=== PATIENT | female | born 1980 | race Caucasian/White ===

== ENCOUNTER 2019-04-12 22:19 | Emergency (ER) | payer OTHER ==
[2019-04-12 22:33] VITALS: TEMP 98.9; BMI 33.2
[2019-04-13] MEDS ORDERED: KETOROLAC TROMETHAMINE 30 MG/1 ML VIAL IVPUSH ONE (00:05)
[2019-04-13] MEDS ORDERED: SODIUM CHLORIDE 1,000 ML IV STA (00:05)
[2019-04-13 00:36] LABS: BASO % 0.4 % (0-2.0); EOS % 0.7 % (0-4.5); HEMATOCRIT 29.4 % (32.4-45.2); HEMOGLOBIN 9.4 GM/dL (10.7-15.3); LYMPH % 16.7 % (8-40); MCH 21.3 pg (25.7-33.7); MCHC 31.8 g/dl (32.0-36.0); MEAN CELL VOLUME 67.2 fl (80-96); MEAN PLT VOLUME 7.9 fl (7.5-11.1); MONO % 7.2 % (3.8-10.2); PLATELET COUNT 305 K/MM3 (134-434); RBC 4.38 M/mm3 (3.60-5.2); RDW 15.8 % (11.6-15.6); WHITE BLOOD COUNT 9.9 K/mm3 (4.0-10.0)
[2019-04-13] MEDS ORDERED: KETOROLAC TROMETHAMINE 30 MG/1 ML VIAL ONE (00:41)
--- NOTE | 2019-04-13 00:42 | PDOC ---
History of Present Illness - General Chief Complaint: Pain, Acute Stated Complaint: STOMACH PAIN Time Seen by Provider: 04/12/19 23:50 History Source: Patient Exam Limitations: No Limitations - History of Present Illness Initial Comments: 04/13/19 00:15 HISTORY OF PRESENT ILLNESS: 38-year-old woman past medical history of renal calculi presents emergency department for evaluation of sudden onset right flank pain radiating to the right groin starting at approximately 1:00 this afternoon. Patient reports she was at work and had a sudden onset sharp stabbing 10 out of 10 flank pain. Patient denies any fevers, chills, dysuria, hematuria, urinary hesitancy, urinary frequency, nausea or vomiting. No recent travel or sick contacts. PAST MEDICAL HISTORY: see HPI SURGICAL HISTORY: Denies ALLERGIES: No known drug allergies REVIEW OF SYSTEMS General/Constitutional: Denies fever or chills. Denies weakness, weight change. HEENT: Denies change in vision. Denies ear pain or discharge. Denies sore throat. Cardiovascular: Denies chest pain or shortness of breath. Respiratory: Denies cough, wheezing, or hemoptysis. Gastrointestinal: Denies nausea, vomiting, diarrhea or constipation. Denies rectal bleeding. Genitourinary: Denies dysuria, frequency, or change in urination. Musculoskeletal: Denies joint or muscle swelling or pain. Denies neck or back pain. Skin and breasts: Denies rash or easy bruising. Neurologic: Denies headache, vertigo, loss of consciousness, or loss of sensation. Psychiatric: Denies depression or anxiety. Endocrine: Denies increased thirst. Denies abnormal weight change. Hematologic/Lymphatic: Denies anemia, easy bleeding, or history of blood clots. Allergic/Immunologic: Denies hives or skin allergy. Denies latex allergy. PHYSICAL EXAM General Appearance: Well-appearing, appropriately dressed. No apparent distress , no intoxication. HEENT: EOMI, PERRLA, normal ENT inspection, normal voice, TMs normal, pharynx normal. No conjunctival pallor. No photophobia, scleral icterus. Neck: Supple. Trachea midline. No tenderness, rigidity, carotid bruit, stridor , lymphadenopathy, or thyromegaly. Respiratory/Chest: Lungs CTAB. No shortness of breath, chest tenderness, respiratory distress, accessory muscle use. No crackles, rales, rhonchi, stridor , wheezing, dullness Cardiovascular: RRR. S1, S2. No JVD, murmur, bradycardia, tachycardia. Gastrointestinal/Abdominal: Normal bowel sounds. Abdomen soft, non-distended. Mild ride sided tenderness without rebound tenderness or guarding. No organomegaly, pulsatile mass, hernia, hepatomegaly, splenomegaly. (-)Pantoja's Musculoskeletal/Extremities: Normal inspection. FROM of all extremities, normal capillary refill. Pelvis Stable. Right CVA tenderness. No tenderness to extremities, pedal edema, swelling, erythema or deformity. 04/13/19 03:00 Past History - Past Medical History Allergies/Adverse Reactions: Allergies Allergy/AdvReac Type Severity Reaction Status Date / Time No Known Allergies Allergy Verified 10/01/16 11:15 Home Medications: Ambulatory Orders NK [No Known Home Medication] 04/12/19 COPD: No - Surgical History Gastric Stapling: No (GASTRIC SLEEVE) - Suicide/Smoking/Psychosocial Hx Smoking History: Never smoked Hx Alcohol Use: No Drug/Substance Use Hx: No Substance Use Type: None *Physical Exam - Vital Signs Last Vital Signs Temp Pulse Resp BP Pulse Ox 98.9 F 86 18 114/68 100 04/12/19 22:31 04/12/19 22:31 04/12/19 22:31 04/12/19 22:31 04/12/19 22:31 ED Treatment Course - LABORATORY CBC & Chemistry Diagram: 04/13/19 00:32 04/13/19 00:32 Medical Decision Making - Medical Decision Making 04/13/19 00:42 A/P: 38-year-old woman with right flank pain since 1 PM Given patient's history of kidney stone and current right CVA tenderness this is most likely a kidney stone. Labs Urine including and culture Normal saline 1 L IV bolus Toradol 30 mg IV now. Risks of receiving Toradol and of been explained to the patient was verbalized understanding is accepting of all potential consequences of receiving the medication prior to testing. CT of abdomen and pelvis to rule out stone 04/13/19 02:53 CT scan is read by imaging test consultant: There is no collection system stone or hydronephrosis The bladders collapsed without intraluminal bladder stone. Cholelithiasis. Status post gastric surgery. Small hiatal hernia. IUD Reevaluation about limited without oral contrast however there is no bowel obstruction. Unremarkable appendix without appendicitis. No free intraperitoneal air Grade 1 and harrow listhesis of L5 on S1 Tiny fat-containing ventral hernia of the right lateral anterior lower abdominal wall Mild tenderness present in the right upper quadrant. CBC is notable for a mild anemia 9.4/29.4 Chemistries are unremarkable Right upper quadrant sonogram
[2019-04-13 00:58] LABS: ALBUMIN 3.8 g/dl (3.4-5.0); BILIRUBIN,TOTAL 0.9 mg/dL (0.2-1); BLOOD UREA NITROGEN 8.7 mg/dL (7-18); CALCIUM 8.7 mg/dL (8.5-10.1); CREATININE 0.6 mg/dL (0.55-1.3); TOT PROT 7.1 g/dl (6.4-8.2)
[2019-04-13 03:15] LABS: EPI CELLS 2.7 /HPF (0-5/HPF); HYALINE CASTS 4 /lpf (0-8); URINE APPEARANCE CLOUDY; URINE BACTERIA 582.8 /hpf (NEGATIVE); URINE BILIRUBIN NEGATIVE (NEGATIVE); URINE COLOR YELLOW; URINE GLUCOSE (UA) NEGATIVE (NEGATIVE); URINE KETONE NEGATIVE (NEGATIVE); URINE LEUK ESTERASE NEGATIVE (NEGATIVE); URINE NITRITE NEGATIVE (NEGATIVE); URINE PROTEIN TRACE (NEGATIVE); URINE WBC 2 /hpf (0-5)
[2019-04-13 03:19] LABS: HCG,QUALITATIVE URINE Negative
[2019-04-13 03:20] LABS: URINE RBC 18.4 /hpf (0-4)
--- NOTE | 2019-04-13 07:16 | PDOC ---
*Physical Exam - Vital Signs Last Vital Signs Temp Pulse Resp BP Pulse Ox 98.9 F 86 18 114/68 100 04/12/19 22:31 04/12/19 22:31 04/12/19 22:31 04/12/19 22:31 04/12/19 22:31 - Physical Exam General Appearance: Yes: Nourished. No: Apparent Distress HEENT: positive: ROSY, Normal ENT Inspection, Normal Voice. negative: Pale Conjunctivae, Scleral Icterus (R), Scleral Icterus (L) Neck: positive: Supple Respiratory/Chest: negative: Respiratory Distress, Accessory Muscle Use Cardiovascular: positive: Regular Rate Integumentary: positive: Normal Color, Dry. negative: Jaundice Neurologic: positive: Fully Oriented, Alert, Normal Mood/Affect ED Treatment Course - LABORATORY CBC & Chemistry Diagram: 04/13/19 00:32 04/13/19 00:32 - ADDITIONAL ORDERS Additional order review: Laboratory Results 04/13/19 04/13/19 00:38 00:32 Sodium 137 Potassium 4.0 Chloride 104 Carbon Dioxide 27 Anion Gap 6 L BUN 8.7 Creatinine 0.6 Est GFR (CKD-EPI)AfAm 135.91 Est GFR (CKD-EPI)NonAf 117.26 Random Glucose 89 Calcium 8.7 Total Bilirubin 0.9 AST 15 ALT 17 Alkaline Phosphatase 72 Total Protein 7.1 Albumin 3.8 Urine Color Yellow Urine Appearance Cloudy Urine pH 8.0 D Ur Specific [place] 1.023 Urine Protein Trace Urine Glucose (UA) Negative Urine Ketones Negative Urine Blood Negative Urine Nitrite Negative Urine Bilirubin Negative Urine Urobilinogen 1.0 Ur Leukocyte Esterase Negative Urine WBC (Auto) 2 Urine RBC (Auto) 18.4 Urine Casts (Auto) 4 U Epithel Cells (Auto) 2.7 Urine Bacteria (Auto) 582.8 Urine HCG, Qual Negative 04/13/19 00:32 RBC 4.38 MCV 67.2 L MCHC 31.8 L RDW 15.8 H D MPV 7.9 Neutrophils % 75.0 Lymphocytes % 16.7 D Monocytes % 7.2 Eosinophils % 0.7 Basophils % 0.4 - Medications Given in the ED: ED Medications Discontinued Medications Generic Name Dose Route Start Last Admin Trade Name Freq PRN Reason Stop Dose Admin Sodium Chloride 1,000 mls @ 1,000 mls/hr 04/13/19 00:05 04/13/19 00:47 Normal Saline - IV 04/13/19 01:04 1,000 mls/hr ASDIR STA Administration Ketorolac Tromethamine 30 mg 04/13/19 00:05 04/13/19 00:46 Toradol Injection - IVPUSH 04/13/19 00:06 30 mg ONCE ONE Administration Progress Note - Progress Note Progress Note: Change of shift, care of patient accepted from [employer] Kirk. Patient with RUQ/R flank pain, pending RUQ sono R/O gall stones. Pt received toradol, had CT which ruled out kidney stones, she says that she feels a lot better, she is laying comfortably in bed, waiting to go to sono. Medical Decision Making - Medical Decision Making 04/13/19 10:25 Pt felling a lot better, sono with cholelithiasis without cholecystitis. UA shows 582 bacteria, I told pt that I would send the urine culture to the lab since she does not have any UTI symptoms, but she prefers to take the antibiotics just in case, WIll give a 3rd gen ceph. She will follow up with Dr. Shaffer or Anuj. Return for worsening/concerning symptoms Pt non toxic appearing in NAD, tolerated PO *DC/Admit/Observation/Transfer Diagnosis at time of Disposition: Bacteriuria Cholelithiasis Qualifiers: Cholelithiasis location: other site Biliary obstruction: without biliary obstruction Qualified Code(s): K80.80 - Other cholelithiasis without obstruction - Discharge Dispostion Disposition: HOME Condition at time of disposition: Stable - Referrals Referrals: Vik Shaffer MD [Staff Physician] - - Patient Instructions Additional Instructions: Return for worsening/concerning symptoms. Please call Dr. Shaffer or Dr. Leslie for an appointment. Decrease the amount of fatty foods intake. - Post Discharge Activity
[2019-04-13 10:57] VITALS: BP 121/62; PULSE 80
[2019-04-13 11:39] LABS: ANISOCYTOSIS 2+; MACROCYTOSIS 0; PLATELET ESTIMATE NORMAL
== END 2019-04-13 10:56 | disposition home or self-care (01) ==
LOC: JER 22:19
PROC: 3E0337Z Introduction of Electrolytic and Water Balance Substance into Peripheral Vein, Percutaneous Approach (ICD-10-PCS; principal; 2019-04-12)
PROC: 3E0333Z Introduction of Anti-inflammatory into Peripheral Vein, Percutaneous Approach (ICD-10-PCS; 2019-04-12)
DX: R82.71 Bacteriuria (principal); K80.20 Calculus of gallbladder without cholecystitis without obstruction
CPT/HCPCS: 36415; 74176-TC; 76705-TC; 80053; 81003; 84703; 85025; 87086; 99282-25; J7030